=== PATIENT | female | born 1955 | race Caucasian/White ===

== ENCOUNTER → 2019-05-09 | Outpatient (CLI) | payer BC | END | disposition home or self-care (01) | LOC: CFH 13:35 | PROVIDERS: ATTEND Family Medicine | DX: Z12.31 Encounter for screening mammogram for malignant neoplasm of breast (principal); Z85.820 Personal history of malignant melanoma of skin | CPT/HCPCS: 77063; 77067 ==

== ENCOUNTER 2019-05-30 13:16 | Outpatient (CLI) | payer BC | END 2019-05-30 23:59 | disposition home or self-care (01) | LOC: CFH 13:16 | PROVIDERS: ATTEND Family Medicine | DX: R92.2 Inconclusive mammogram (principal) | CPT/HCPCS: 76642; 77065 ==

== ENCOUNTER 2019-08-22 07:02 | Outpatient (CLI) | payer MEDICARE ==
[2019-08-22] MEDS ORDERED: LIDOCAINE 1%, 20ML ONE (07:30)
[2019-08-22] MEDS ORDERED: LIDOCAINE 1%-EPI 1:100K, 20ML ONE (07:30)
[2019-08-22] MEDS ORDERED: SODIUM BICARBONATE 4.2%, 5ML ONE (07:30)
== END 2019-08-22 23:59 | disposition home or self-care (01) ==
LOC: CFH 07:02
PROVIDERS: ATTEND Family Medicine
DX: N63.11 Unspecified lump in the right breast, upper outer quadrant (principal); C50.411 Malignant neoplasm of upper-outer quadrant of right female breast; Z17.0 Estrogen receptor positive status [ER+]
CPT/HCPCS: 19083; 77065; 88305; 88360; 88361; J3490; 19285

== ENCOUNTER 2019-10-30 07:11 | Day surgery (SDC) | payer MEDICARE ==
[~2019-10-30] VITALS: Ht 157.5 cm; Wt 105.3 kg
[2019-10-30] MEDS ORDERED: LIDOCAINE 1%, 20ML ONE (08:07)
[2019-10-30 08:49] VITALS: BP 138/92
[2019-10-30] MEDS ORDERED: LACTATED RINGERS 1,000 ML IV SCH (09:09)
[2019-10-30] MEDS ORDERED: BENA10TA6 PO (09:13)
[2019-10-30] MEDS ORDERED: ESOM40CA PO (09:13)
[2019-10-30] MEDS ORDERED: MIDAZOLAM 1 MG/ML, 2ML ONE (09:28)
[2019-10-30] MEDS ORDERED: FENTANYL PF 250 MCG/5ML ONE (09:28)
[2019-10-30] MEDS ORDERED: MEPERIDINE/PF 25MG/ML,1ML IVPush PRN (09:30)
[2019-10-30] MEDS ORDERED: HALOPERIDOL 5 MG/ML IV PRN (09:30)
[2019-10-30] MEDS ORDERED: ACETAMINOPHEN 500 MG TABLET PO ONE (09:30)
[2019-10-30] MEDS ORDERED: hydrALAzine 20 MG/ML, 1ML IV PRN (09:30)
[2019-10-30] MEDS ORDERED: HYDROmorphone 2 MG/ML, 1ML IVPush PRN (09:30)
[2019-10-30] MEDS ORDERED: LABETALOL 5MG/ML, 20ML IV PRN (09:30)
[2019-10-30] MEDS ORDERED: FENTANYL PF 100 MCG/2ML IV PRN (09:30)
[2019-10-30] MEDS ORDERED: OXYcodone 5 MG/5 ML ORAL.SOL UDC PO PRN (09:30)
[2019-10-30] MEDS ORDERED: SCOPOLAMINE PATCH, 1.5MG PATCH.TD72 TD ONE (09:30)
[2019-10-30] MEDS ORDERED: GABAPENTIN 300 MG CAPSULE PO ONE (09:30)
[2019-10-30] MEDS ORDERED: DIAZEPAM 5 MG/ML, 2ML IVPush PRN (09:30)
[2019-10-30] MEDS ORDERED: PROMETHAZINE 25 MG/ML, 1ML IV PRN (09:30)
[2019-10-30] MEDS ORDERED: BUPIVACAINE/PF 0.5% ONE (09:33)
[2019-10-30] MEDS ORDERED: ISOSULFAN BLUE 10 MG/ML, 5ML IV ONE (09:33)
[2019-10-30] MEDS ORDERED: EPINEPHRINE 1 MG/ML, 1ML ONE (09:33)
[2019-10-30 09:44] LABS: ALANINE AMINOTRANSFERASE 27 U/L (12-78); ALBUMIN 3.8 g/dL (3.4-5.0); ANION GAP 7 mmol/L (5-15); CHLORIDE 109 mmol/L (98-107); CREATININE 1.03 mg/dL (0.55-1.02)
[2019-10-30 09:47] LABS: ALKALINE PHOSPHATASE 100 U/L (45-117); BILIRUBIN,TOTAL 0.5 mg/dL (0.2-1.0)
[2019-10-30] MEDS ORDERED: SUCCINYLCHOLINE 20 MG/ML, 10ML ONE (11:13)
[2019-10-30] MEDS ORDERED: ROCURONIUM 10MG/ML,5ML ONE (11:13)
[2019-10-30] MEDS ORDERED: GLYCOPYRROLATE 0.2MG/1ML, 5ML ONE (11:13)
[2019-10-30] MEDS ORDERED: PROPOFOL 10 MG/ML, 20ML ONE (11:13)
[2019-10-30] MEDS ORDERED: ONDANSETRON 2MG/ML, 2ML ONE (11:13)
[2019-10-30] MEDS ORDERED: CEFAZOLIN 1,000 MG ONE (11:13)
[2019-10-30] MEDS ORDERED: DEXAMETHASONE 4 MG/ML, 1ML ONE (11:13)
[2019-10-30] MEDS ORDERED: NEOSTIGMINE 1 MG/ML, 10ML ONE (11:13)
[2019-10-30] MEDS ORDERED: KETOROLAC 30 MG/1 ML IVPush PRN (12:30)
== END 2019-10-30 15:50 | disposition home or self-care (01) ==
LOC: OUT 07:11 → EDSTATUS 08:00 → OUT 15:50
PROVIDERS: ATTEND Surgery
DX: C50.411 Malignant neoplasm of upper-outer quadrant of right female breast (principal); E66.01 Morbid (severe) obesity due to excess calories; K21.9 Gastro-esophageal reflux disease without esophagitis; I10 Essential (primary) hypertension; E66.9 Obesity, unspecified; E55.9 Vitamin D deficiency, unspecified; E78.2 Mixed hyperlipidemia; F32.9 Major depressive disorder, single episode, unspecified; Z17.0 Estrogen receptor positive status [ER+]; Z68.41 Body mass index [BMI] 40.0-44.9, adult; Z79.899 Other long term (current) drug therapy; Z88.1 Allergy status to other antibiotic agents; Z91.018 Allergy to other foods; Z85.828 Personal history of other malignant neoplasm of skin; Z90.710 Acquired absence of both cervix and uterus; Z98.890 Other specified postprocedural states; Z82.61 Family history of arthritis; Z82.49 Family history of ischemic heart disease and other diseases of the circulatory system; Z83.42 Family history of familial hypercholesterolemia
CPT/HCPCS: 19301; 36415; 38525; 38792; 80053; 88307; 88333; 88341; 88342; 93005; A9541; J0171; J0330; J0690; J1100; J1885; J2250; J2405; J2704; J2710; J3010; J7120

== ENCOUNTER → 2020-11-01 | Outpatient (CLI) | payer MEDICARE ==
[~2020-11-01] MED LIST: BENA10TA59 PO; ESOM40CA PO
== END | disposition home or self-care (01) ==
LOC: CFH 07:01
PROVIDERS: ATTEND Internal Medicine Hematology & Oncology
DX: C50.811 Malignant neoplasm of overlapping sites of right female breast (principal); M85.88 Other specified disorders of bone density and structure, other site
CPT/HCPCS: 77062; 77080; 77066; G0279